=== PATIENT | female | born 1985 | race Caucasian/White ===

== ENCOUNTER 2024-11-05 08:54 | Outpatient (CLI) | payer BC, SELFPAY ==
[2024-11-07 07:06] LABS: HPV Source Cervix; HPV, High Risk by TMA Not Detected
== END 2024-11-05 08:55 | disposition home or self-care (01) ==
PROVIDERS: Visit Provider Obstetrics & Gynecology
DX: E03.9 Hypothyroidism, unspecified (principal); Z13.1 Encounter for screening for diabetes mellitus; Z13.6 Encounter for screening for cardiovascular disorders; Z11.51 Encounter for screening for human papillomavirus (HPV); Z12.4 Encounter for screening for malignant neoplasm of cervix
CPT/HCPCS: 80061; 82947; 84439; 84443; 87624; 87625; 88141; 88142

== ENCOUNTER 2025-02-12 09:56 | Outpatient (CLI) | payer BC, SELFPAY ==
--- NOTE | 2025-02-12 10:15 | CRLHL7_ITS ---
For Patients: As a result of the Century Cures Act, medical imaging exams and procedure reports are released immediately into your electronic medical record. You may view this report before your referring provider. If you have questions, please contact your health care provider. INDICATION: BILATERAL SCREENING MAMMOGRAM, ASYMPTOMATIC 39 Y/O FEMALE COMPARISON: Baseline TECHNIQUE: Digital mammogram in CC and MLO projections including computer-aided detection (CAD) and tomosynthesis. BREAST COMPOSITION: There are scattered areas of fibroglandular density. FINDINGS: No suspicious findings. ASSESSMENT: BI-RADS 1 Negative RECOMMENDATION: Annual screening mammogram. A lay language report of this examination will be provided to the patient. Dictated by: Gonzalo Gordon MD @ 02/13/2025 09:03:34 (Electronically Signed)
== END 2025-02-12 09:57 | disposition home or self-care (01) ==
LOC: MAMMO 09:57
PROVIDERS: Visit Provider Obstetrics & Gynecology
DX: Z12.31 Encounter for screening mammogram for malignant neoplasm of breast (principal)
CPT/HCPCS: 77063; 77067